=== PATIENT | female | born 1960 | race Caucasian/White ===

== ENCOUNTER → 2016-08-10 | Outpatient (REF) | payer OTHER | LOC: M LAB REF 11:51 | PROVIDERS: ATTEND Internal Medicine | DX: Z51.81 Encounter for therapeutic drug level monitoring (principal); Z79.899 Other long term (current) drug therapy; G43.909 Migraine, unspecified, not intractable, without status migrainosus ==

== ENCOUNTER → 2017-02-07 | Outpatient (REF) | payer OTHER | LOC: M LAB REF 12:35 | PROVIDERS: ATTEND Internal Medicine | DX: G43.909 Migraine, unspecified, not intractable, without status migrainosus (principal); Z51.81 Encounter for therapeutic drug level monitoring; Z79.899 Other long term (current) drug therapy ==

== ENCOUNTER → 2017-08-11 | Outpatient (REF) | payer OTHER ==
[2017-08-11 14:02] LABS: VALPROIC ACID (DEPAKOTE) 51.1 UG/ML (50.0-100.0)
== END ==
LOC: M LAB REF 13:14
DX: Z79.899 Other long term (current) drug therapy (principal); G43.909 Migraine, unspecified, not intractable, without status migrainosus

== ENCOUNTER → 2018-03-20 | Outpatient (REF) | payer OTHER ==
[2018-03-20 12:57] LABS: VALPROIC ACID (DEPAKOTE) 36.9 UG/ML (50.0-100.0)
== END ==
LOC: M LAB REF 12:27
DX: G43.909 Migraine, unspecified, not intractable, without status migrainosus (principal); Z79.899 Other long term (current) drug therapy

== ENCOUNTER → 2019-01-30 | Outpatient (REF) | payer OTHER | LOC: M LAB REF 12:28 | PROVIDERS: ATTEND Nurse Practitioner Adult Health | DX: G43.909 Migraine, unspecified, not intractable, without status migrainosus (principal); Z79.899 Other long term (current) drug therapy ==

== ENCOUNTER → 2019-08-09 | Outpatient (REF) | payer OTHER | LOC: M LAB REF 12:24 | PROVIDERS: ATTEND Internal Medicine | DX: Z79.899 Other long term (current) drug therapy (principal) ==

== ENCOUNTER → 2020-03-09 | Outpatient (REF) | payer OTHER | LOC: M LAB REF 12:35 | PROVIDERS: ATTEND Internal Medicine | DX: Z79.899 Other long term (current) drug therapy (principal) ==

== ENCOUNTER → 2020-09-14 | Outpatient (REF) | payer OTHER | LOC: M LAB REF 16:21 | PROVIDERS: ATTEND Internal Medicine | DX: Z79.899 Other long term (current) drug therapy (principal); G43.909 Migraine, unspecified, not intractable, without status migrainosus ==

== ENCOUNTER 2020-11-30 10:12 | Observation (INO) | payer OTHER ==
[~2020-11-30] VITALS: Ht 157.5 cm; Wt 77.3 kg
[2020-11-30] MEDS ORDERED: DIVA500T9 PO (10:31)
[2020-11-30] MEDS ORDERED: PRAV40TA2 PO (10:31)
[2020-11-30] MEDS ORDERED: ASPI81TA26 PO (10:31)
[2020-11-30] MEDS ORDERED: LOSA50TA88 PO (10:31)
[2020-11-30] MEDS ORDERED: FOLI400T13 PO (10:31)
[2020-11-30] MEDS ORDERED: B-122500 PO (10:31)
[2020-11-30] MEDS ORDERED: NS 1,000 ML IV ONE (11:00)
[2020-11-30 11:07] LABS: BASO % 0.5 % (0.0-1.0); EOS # 0.2 10^3/uL (0.0-0.5); EOS % 2.8 % (0.0-3.0); HEMATOCRIT 40.3 % (36.0-47.0); HEMOGLOBIN 13.5 g/dl (12.0-15.5); LYMPH # 1.3 10^3/uL (1.5-5.0); LYMPH % 22.1 % (24.0-44.0); MEAN CORPUSCULAR HEMOGLOBIN 31.2 pg (27.0-33.0); MEAN CORPUSCULAR HGB CONC 33.5 g/dl (32.0-36.5); MEAN CORPUSCULAR VOLUME 93.1 fl (80.0-96.0); MONO # 0.4 10^3/uL (0.0-0.8); NEUTROPHILS # 3.9 10^3/uL (1.5-8.5); NEUTROPHILS % 67.3 % (36.0-66.0); PLATELET COUNT, AUTOMATED 297 10^3/uL (150-450); RED BLOOD COUNT 4.33 10^6/uL (4.00-5.40); WHITE BLOOD COUNT 5.8 10^3/uL (4.0-10.0)
--- NOTE | 2020-11-30 11:13 | REP ---
INDICATION: Syncope/near-syncope COMPARISON: None. TECHNIQUE: Portable AP view of the chest FINDINGS: The mediastinum and cardiac silhouette are within normal limits for portable technique. The lung gonzalez are clear without acute consolidation, effusion, or pneumothorax. Skeletal structures are intact. IMPRESSION: No acute cardiopulmonary process appreciated. <Electronically signed by Boy Swift > 11/30/20 1105
[2020-11-30 11:42] LABS: BLOOD UREA NITROGEN 16 MG/DL (7-18); CALCIUM LEVEL 9.3 MG/DL (8.8-10.2); CARBON DIOXIDE LEVEL 26 MEQ/L (21-32); CHLORIDE LEVEL 109 MEQ/L (98-107); CK-MB VALUE MASS < 1.0 NG/ML (<3.6); CPK CREATINE PHOSPHOKINASE 72 U/L (26-192); CREATININE FOR GFR 0.79 MG/DL (0.55-1.30); ETHYL ALCOHOL (ETHANOL) < 0.003 % (0.000-0.010); FREE T4 1.05 NG/DL (0.76-1.46); GLOMERULAR FILTRATION RATE > 60.0 (>45); GLUCOSE, FASTING 94 MG/DL (70-100); MB/CK RELATIVE INDEX 1.39 (< OR =4); POTASSIUM SERUM 4.1 MEQ/L (3.5-5.1); SODIUM LEVEL 141 MEQ/L (136-145); TROPONIN I < 0.02 NG/ML (< 0.10)
[2020-11-30 12:07] LABS: AMPHETAMINES LEVEL URINE NEGATIVE (NEGATIVE); BARBITURATES URINE NEGATIVE (NEGATIVE); BENZODIAZEPINES URINE NEGATIVE (NEGATIVE); CANNABINOIDS URINE NEGATIVE (NEGATIVE); COCAINE METABOLITE URINE NEGATIVE (NEGATIVE); METHADONE URINE NEGATIVE (NEGATIVE); OPIATES URINE NEGATIVE (NEGATIVE); PHENCYCLIDINE URINE NEGATIVE (NEGATIVE)
[2020-11-30] MEDS ORDERED: ISOVUE-370 76% 100ML VIAL As Ordered ONE (12:44)
[2020-11-30 13:01] LABS: ALBUMIN 3.7 GM/DL (3.2-5.2); ALT/SGPT 22 U/L (12-78); BILIRUBIN,DIRECT < 0.1 MG/DL (0.0-0.2); BILIRUBIN,TOTAL 0.4 MG/DL (0.2-1.0); LIPASE 66 U/L (73-393); TOTAL PROTEIN 6.9 GM/DL (6.4-8.2); VALPROIC ACID (DEPAKOTE) 53.4 UG/ML (50.0-100.0)
--- NOTE | 2020-11-30 13:18 | REPVR ---
PROCEDURE INFORMATION: Exam: CT Head Without Contrast Exam date and time: 11/30/2020 12:58 PM Age: 60 years old Clinical indication: Pain; Syncope and collapse; Headache; Additional info: Headache syncope TECHNIQUE: Imaging protocol: Computed tomography of the head without contrast. Radiation optimization: All CT scans at this facility use at least one of these dose optimization techniques: automated exposure control; mA and/or kV adjustment per patient size (includes targeted exams where dose is matched to clinical indication); or iterative reconstruction. COMPARISON: No relevant prior studies available. FINDINGS: Brain: There is no acute intracranial hemorrhage, cerebral edema, or midline shift. Mild cerebral and cerebellar volume loss is present. Cerebral ventricles: No hydrocephalus. Paranasal sinuses: There is no acute sinusitis. Mastoid air cells: Visualized mastoid air cells are well aerated. Orbital cavity: Unremarkable as visualized. Bones/joints: No acute fracture. Soft tissues: Unremarkable. IMPRESSION: No acute intracranial abnormality. Electronically signed by: Abdias Feng On 11/30/2020 13:18:00 PM
--- NOTE | 2020-11-30 13:23 | REP ---
INDICATION: RUQ pain syncope COMPARISON: 02/25/2014. TECHNIQUE: CT Scan of the abdomen and pelvis was performed with intravenous administration of 100 cc of Isovue 370, without oral contrast. Sagittal and coronal reconstruction images are performed. FINDINGS: Lung bases: There is no acute infiltrate. There is a small hiatal hernia. Liver: Normal Gallbladder: Unremarkable. Spleen: Normal. Adrenals: Normal. Pancreas: Normal. Kidneys: 3 cortical hypodensities in the mid left kidney likely represent small cysts, the largest 11 mm. Small and large bowel: There is sigmoid diverticulosis without acute diverticulitis.. Free fluid: None. Abdominal aorta: No aneurysm or dissection. Adenopathy: None. Appendix: Not inflamed. Osseous structures: Unremarkable. Pelvis: No mass. IMPRESSION: No acute abnormalities as discussed above. <Electronically signed by Nils Cai > 11/30/20 [id number]
[2020-11-30] MEDS ORDERED: CYAN100050 PO (14:41)
[2020-11-30 14:45] LABS: RSV AMPLIFICATION NEGATIVE (NEGATIVE)
[2020-11-30] MEDS ORDERED: MOM 30ML SUSPENSION UDC PO PRN (14:45)
[2020-11-30] MEDS ORDERED: MAALOX 30 ML SUSP *UDC PO PRN (14:45)
[2020-11-30] MEDS ORDERED: ACETAMINOPHEN TAB 650MG DOSE (2X325MG) PO PRN (14:45)
--- NOTE | 2020-11-30 15:24 | HPEPDOC ---
[facility] Medical History & Physical Date of Admission Nov 30, 2020 Date of Service: Nov 30, 2020 Primary Care Physician: Jr Manuel Collins Attending Physician: TIMOTHY CHISHOLM DO History and Physical CHIEF COMPLAINT: Syncopal episode HISTORY OF PRESENT ILLNESS: The patient is a 60-year-old female who was putting up a small decorative fence near her house this afternoon when she felt a few pangs of abdominal pain, then subsequently felt lightheaded, and then passed out. This was witnessed by her , apparently she was only unconscious for a few seconds. She knew where she was, she did not have any sort of postictal period. She felt somewhat lightheaded thereafter, but this also passed within a few minutes, and then she kept on working. Approximately 30 minutes later she was bending over to look into a well, once again felt lightheaded, notified her , and they decided to seek further evaluation. She did not lose consciousness during this episode, but was presyncopal. Evaluation in the emergency department was largely unremarkable other than the fact that she seems to have labile blood pressures. She has readings anywhere from the 130s systolic up to 180s. Orthostatic vital signs in the ED were negative, but again her blood pressure readings seem to be all over the place. EKG shows sinus rhythm with no abnormalities. CT of the head without contrast, CT of the abdomen and pelvis with IV contrast (given her history of abdominal pains preceding syncopal event), and chest x-ray were all unremarkable. CBC, CMP, cardiac enzymes, lipase, thyroid studies were all within acceptable limits. CODE STATUS: Full code PAST MEDICAL HISTORY: Migraine Hypertension Hyperlipidemia PAST SURGICAL HISTORY: None SOCIAL HISTORY: Does not smoke. Only drinks alcohol on rare occasion, and not much when she does. Denies illicit drug use. FAMILY HISTORY: Mother has an extensive cardiac history having had multiple stents. Father has diabetes mellitus type 2 and had open-heart surgery for valve replacement secondary to congenital bicuspid aortic valve. Maternal uncle and 2 open heart surgeries with bypass. No family history of cancer. REVIEW OF SYSTEMS: Constitutional: Patient denies fevers, chills, night sweats, recent weight gai n/loss. HEENT: Patient denies blurred or double vision, transient visual disturbances, postnasal drip, epistaxis, sore throat, difficulty chewing or swallowing food. Cardiovascular: Patient denies chest discomfort/pain, palpitations, exertional dyspnea, orthopnea, edema of the extremities, claudication. Respiratory: Patient denies dyspnea, wheezing, cough, hemoptysis, sputum production. Gastrointestinal: Patient denies nausea, vomiting, diarrhea, constipation, abdominal pain, melena, hematochezia, hematemesis, jaundice. At this time, while in the ED, she is actually feeling quite well. PHYSICAL EXAMINATION: General: Awake, alert, oriented 3. She is in no acute distress. HEENT: Head normocephalic atraumatic, conjunctiva are pink, sclera are nonicteric, buccal mucosa is pink and moist with no lesions in the oropharynx. Hearing is grossly intact to conversation. Respiratory: Clear to auscultation bilaterally with no wheezes, rales, or rhonchi. Cardiovascular: Regular rate and rhythm, with no rubs, gallops, or murmur. Abdomen: Soft, nontender, nondistended, no hepatosplenomegaly appreciated. Bowel sounds present. Extremities: 2+ pulses in the radial and dorsalis pedis bilaterally. No evidence of clubbing or cyanosis. ELECTROCARDIOGRAM: Sinus rhythm, intervals are within normal limits, no acute abnormalities IMAGING: Unremarkable as listed above ASSESSMENT: Syncope, suspected etiologies could be: - Neurocardiogenic (vasovagal), given that the syncopal event was preceded by exertion and abdominal pain which may have caused her to perform a Valsalva maneuver as well. This also could be secondary to carotid sinus hyperse nsitivity which would fall under the category of neurocardiogenic. Orthostatic hypertension is less likely given that her orthostatics were negative in the ED, her blood pressure is actually elevated, and it was not a particularly hot day, nor was she sweating much, and she has no indication of dehydration on labs. - Migraine, possibly abdominal migraine. 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 This sounds similar to her episode today. After years of investigation apparently it was determined that these episodes were caused by migraine, she was seen and evaluated by neurology and started on B12, folate, Depakote. Depakote levels upon arrival were within target limits, but this is still a possibility. Hypertensive urgency -Pressures are labile in the ED, but seem to be trending down on their own, no specific antihypertensive therapy will be given at this time, but we'll continue to monitor her blood pressure through the night. DVT prophylaxis -Lovenox PLAN: Admit on observation status to [facility] with telemetry. Ultrasound of the carotids and echocardiogram is ordered. Will repeat orthostatic vital signs again. Will continue her home medications, including her home antihypertensive of losartan, and migraine medication Depakote (which she took both this morning). Laboratory evaluation performed in the ED was already quite comprehensive. Otherwise, will keep on telemetry for 24 hours, and if she does not have any episodes overnight, her blood pressure normalizes on its own, and there are no positive findings on ultrasound/echocardiogram, then consideration may be made to have her pursue further follow-up with her PCP and neurologist as an outpatient. Vital Signs Vital Signs Date Time Temp Pulse Resp B/P (MAP) Pulse Ox O2 Delivery O2 Flow Rate FiO2 11/30/20 13:18 73 153/80 (104) 71 169/74 (105) 71 168/83 (111) 11/30/20 13:15 100 Room Air 11/30/20 10:13 98.2 18 Laboratory Data Labs 24H Laboratory Tests 2 11/30/20 10:50: Immature Granulocyte % (Auto) 0.3, Neutrophils (%) (Auto) 67.3H, Lymphocytes (%) (Auto) 22.1L, Monocytes (%) (Auto) 7.0, Eosinophils (%) (Auto) 2.8, Basophils (%) (Auto) 0.5, Neutrophils # (Auto) 3.9, Lymphocytes # (Auto) 1.3L, Monocytes # (Auto) 0.4, Eosinophils # (Auto) 0.2, Basophils # (Auto) 0.0, Nucleated Red Blood Cells % (auto) 0.0, Anion Gap 6L, Glomerular Filtration Rate > 60.0, Calcium Level 9.3, Magnesium Level 2.0, Total Bilirubin 0.4, Direct Bilirubin < 0.1, Aspartate Amino Transf (AST/SGOT) 10, Alanine Aminotransferase (ALT/SGPT) 22, Alkaline Phosphatase 56, Total Creatine Kinase 72, Creatine Kinase MB < 1.0, Creatine Kinase MB Relative Index 1.39, Troponin I < 0.02, Total Protein 6.9, Albumin 3.7, Albumin/Globulin Ratio 1.2, Lipase 66L, Thyroid Stimulating Hormone (TSH) 1.270, Free Thyroxine 1.05, Valproic Acid (Depakene) Level 53.4, Ethyl Alcohol Level < 0.003 11/30/20 11:32: Urine Opiates Screen NEGATIVE, Urine Methadone Screen NEGATIVE, Urine Barbiturates Screen NEGATIVE, Urine Phencyclidine Screen NEGATIVE, Urine Amphetamines Screen NEGATIVE, Urine Benzodiazepines Screen NEGATIVE, Urine Coca ine Metabolite Screen NEGATIVE, Urine Cannabinoids Screen NEGATIVE 11/30/20 13:30: Coronavirus (COVID-19)(PCR) NEGATIVE, Influenza Type A (RT-PCR) NEGATIVE, Influenza Type B (RT-PCR) NEGATIVE, Respiratory Syncytial Virus (PCR) NEGATIVE CBC/BMP Laboratory Tests 11/30/20 10:50 Home Medications Scheduled Aspirin (Aspirin EC) 81 Mg Tablet.dr, 81 MG PO DAILY Cyanocobalamin (Vitamin B-12) (Vitamin B-12) 1,000 Mcg Tablet, 1,000 MCG PO DAILY Divalproex Sodium (Divalproex Sodium ER) 500 Mg Tab.er.24h, 500 MG PO DAILY Folic Acid (Folic Acid) 0.4 Mg Tablet, 0.8 MG PO DAILY Losartan Potassium (Losartan Potassium) 50 Mg Tablet, 50 MG PO DAILY Pravastatin Sodium (Pravastatin Sodium) 40 Mg Tablet, 40 MG PO DAILY Allergies Coded Allergies: SEAFOOD (Verified Allergy, Severe, throat swelling, 11/30/20) bee venom protein (honey bee) (Verified Allergy, Severe, throat swelling , 11/30/20) A-FIB/CHADSVASC A-FIB History Current/History of A-Fib/PAF?: No TIMOTHY CHISHOLM DO Nov 30, 2020 15:24
--- NOTE | 2020-11-30 17:03 | ECGEPIP ---
[facility] - ED Test Date: 2020-11-30 Pat Name: FANTASMA DE LA TORRE Department: Room: - Gender: Female Scrap Sorter: HC : 1960 Requested By: ALEJANDRO Rinaldi Order Number: [id number] Reading MD: Simin Rolon Measurements Intervals [place] Rate: 60 P: 41 [place]: 176 QRS: 6 QRSD: 90 T: 10 QT: 430 QTc: 430 Interpretive Statements Normal sinus rhythm NSTTW abnormalities No prior Electronically Signed on 11-30-2020 17:03:13 EDT by Simin Rolon
--- NOTE | 2020-11-30 18:33 | REP ---
INDICATION: Assess stenosis TECHNIQUE: Carotid ultrasonography was performed bilaterally FINDINGS: Right: CCA systolic 101 centimeters/second: CCA diastolic: 25.5 centimeters/second ICA systolic: 111 centimeters/second ICA diastolic: 43.1 centimeters/second ICA CCA ratio: 1.09 Left: CCA systolic: 116 centimeters/second CCA diastolic: 30.6 centimeters/second ICA systolic 119 centimeters/second: Reversed ICA diastolic: 46.5 centimeters/second reversed ICA CCA ratio: 1.02 Vertebral artery: Right: Antegrade flow left: Retrograde flow Echogenic material seen along the carotid arterial wu consistent with atheromatous plaque formation. IMPRESSION: According to the SRU criteria there is less than 50% stenosis of the internal carotid artery bilaterally. There is, however, evidence of a significant left-sided subclavian steal syndrome. This will need further investigation with either CTA or MRA. <Electronically signed by Rosalino Amador > 11/30/20 [id number]
[2020-11-30 20:00] VITALS: BP 148/69
[2020-11-30] MEDS ORDERED: SLF 3 ML SYR IV PRN (21:00)
[2020-11-30] MEDS: SLF 3 ML SYR IV SCH (22:06)
[2020-12-01 04:00] VITALS: BP 140/70
[2020-12-01 05:36] LABS: HEMATOCRIT 38.2 % (36.0-47.0); HEMOGLOBIN 12.8 g/dl (12.0-15.5); MEAN CORPUSCULAR HEMOGLOBIN 30.5 pg (27.0-33.0); MEAN CORPUSCULAR HGB CONC 33.5 g/dl (32.0-36.5); MEAN CORPUSCULAR VOLUME 91.2 fl (80.0-96.0); PLATELET COUNT, AUTOMATED 276 10^3/uL (150-450); RED BLOOD COUNT 4.19 10^6/uL (4.00-5.40); WHITE BLOOD COUNT 5.9 10^3/uL (4.0-10.0)
[2020-12-01] MEDS: SLF 3 ML SYR IV SCH (05:42)
[2020-12-01 05:57] LABS: BLOOD UREA NITROGEN 14 MG/DL (7-18); GLUCOSE, FASTING 89 MG/DL (70-100)
[2020-12-01 05:58] LABS: CALCIUM LEVEL 8.7 MG/DL (8.8-10.2); CARBON DIOXIDE LEVEL 26 MEQ/L (21-32); CHLORIDE LEVEL 108 MEQ/L (98-107); GLOMERULAR FILTRATION RATE > 60.0 (>45); POTASSIUM SERUM 3.8 MEQ/L (3.5-5.1); SODIUM LEVEL 140 MEQ/L (136-145)
[2020-12-01 08:00] VITALS: BP 166/85
[2020-12-01] MEDS ORDERED: ISOVUE-370 76% 100ML VIAL As Ordered ONE (08:10)
--- NOTE | 2020-12-01 08:44 | REP ---
INDICATION: Evaluate for significant left subclavian steal seen on US COMPARISON: None. TECHNIQUE: Axial contrast enhanced images from the thoracic inlet to the upper abdomen using angiographic technique with multiplanar re-formations. 75 ml Isovue 370 intravenous contrast material administered without complication. This CT examination was performed using the following dose reduction techniques: Automated exposure control, adjustment of mA and/or kv according to the patient's size, and use of iterative reconstruction technique. FINDINGS: Satisfactory enhancement of the aorta and branch vessels through the aortic arch including proximal carotid, vertebral, subclavian and axillary arteries is noted. There is no evidence for subclavian artery occlusion, but sagittal MIP reformations suggest focal narrowing at the origin of the left subclavian artery (series 406; image 40). Remainder of the visualized arterial structures appear normal. Bilateral lung gonzalez are clear and without consolidation, effusion, or pneumothorax. Tracheobronchial tree is patent. No obvious adenopathy. Atherosclerotic changes to the coronary arteries along with mild atherosclerotic changes to the thoracic aorta cannot be excluded. Surrounding musculoskeletal structures are intact. IMPRESSION: 1. Narrowing at the origin of the left subclavian artery cannot definitively be excluded and is best suggested on sagittal MIP reformations as noted above. However, otherwise normal enhancement and appearance of the left subclavian artery as well as the remainder of the visualized arterial structures is noted. <Electronically signed by Boy Swift > 12/01/20 [id number]
[2020-12-01] MEDS ORDERED: LOSARTAN 50MG TABLET PO SCH (09:00)
[2020-12-01] MEDS ORDERED: ASPIRIN 81MG ENTERIC TABLET PO SCH (09:00)
[2020-12-01] MEDS ORDERED: DIVALPROEX 500MG *ER* TAB PO SCH (09:00)
[2020-12-01] MEDS ORDERED: PRAVASTATIN 20 MG TAB PO SCH (09:00)
[2020-12-01] MEDS ORDERED: ENOXAPARIN 40MG/0.4ML SYRINGE (J1650 PER 10MG) SC SCH (09:00)
[2020-12-01 09:21] VITALS: BP 166/85
--- NOTE | 2020-12-01 11:38 | IPNPDOC ---
Text Note Date of Service The patient was seen on 12/01/20. NOTE Subjective: Patient was seen and examined this morning at bedside. She tells me she's had no more presyncopal or syncopal episodes. She's been feeling well she's been walking around her room on her own. She has a mild headache but otherwise feels well. Denies any chest pain or shortness of breath. Denies left arm numbness or pain. Tells me she is not an active smoker and has never smoked before. Objective: Constitutional: Awake and alert, in no apparent distress ENT: Sclera are clear. Mucosa is moist. Respiratory: Lungs CTA bilaterally. No respiratory distress. Cardiovascular: RRR S1 and S2 are normal, no murmur Gastrointestinal: Abdomen is soft, non distended, non tender, BS present. Musculoskeletal: No edema. No joint deformities. Neurologic: No focal neurological deficit. Mental Status: A&O x3, normal affect Skin: Warm, dry Assessment/plan: # Sycope: Possibly vasovagal while working in the garden vs possibly related to her migraine. No events on telemetry monitoring. Patient was noted to have significant left-sided subclavian steal on ultrasound and CT was recommended. CTA was obtained which suggests focal narrowing at the origin of the left subclavian artery. Unfortunately to have vesicles surgery document control clerk today to consult with but I was able to obtain a consultation with [facility] vascular surgeon Dr. Tiwari, he agreed it was a representation especially having subclavian steal in a patient who has no smoking history and agreed to see her in the clinic ([id number]) he doesn't feel is necessary to transfer the patient for inpatient evaluation given that she is doing better with no more syncopal episodes. Patient will be discharged home today and asked to follow-up with vascular surgery and her PCP at discharge. # Hypertensive urgency: Patient's blood pressure is labile appears to be better controlled this morning. She thinks it's related to her headache which is better than it was. Continue home medications and follow-up with PCP. # DVT prophylaxis: Lovenox A [facility]ouse[facility] Hospitalist VS,Dolly, I+O VS, [place]ren[place], I+O Laboratory Tests 12/01/20 05:16 Vital Signs Date Time Temp Pulse Resp B/P (MAP) Pulse Ox O2 Delivery O2 Flow Rate FiO2 12/01/20 09:21 166/85 12/01/20 08:00 98.9 84 18 96 Room Air I&O- Last 24 Hours up to 6 AM 12/01/20 06:00 Intake Total 1650 ml Output Total 600 ml Balance 1050 ml LANA INGRAM MD Dec 01, 2020 11:38
[2020-12-02] MEDS ORDERED: META28.32 PO (13:03)
== END 2020-12-01 14:17 | disposition home or self-care (01) ==
LOC: M ED 10:12 → M ED INP 10:13 → ENRESERV 15:32 → M PCU 16:34
PROVIDERS: ADMIT Neuromusculoskeletal Medicine & OMM; ATTEND Family Medicine
DX: R55 Syncope and collapse (principal); I16.0 Hypertensive urgency; G45.8 Other transient cerebral ischemic attacks and related syndromes; R10.9 Unspecified abdominal pain; G43.909 Migraine, unspecified, not intractable, without status migrainosus; E78.5 Hyperlipidemia, unspecified; Z79.899 Other long term (current) drug therapy; Z79.82 Long term (current) use of aspirin; Z91.013 Allergy to seafood; Z91.030 Bee allergy status
CPT/HCPCS: 36415; 70450; 71045; 71275; 74177; 80048; 80076; 80164; 80307; 82077; 82550; 82553; 83690; 83735; 84439; 84443; 84484; 85025; 85027; 87631; 87641; 93005; 93041; 93880; 94760; 96360; 96361; 96372; 99285; J1650; Q9967

== ENCOUNTER → 2021-03-22 | Outpatient (REF) | payer OTHER ==
[~2021-03-22] MED LIST: ASPI81TA26 PO; B-122500 PO; CYAN100050 PO; DIVA500T9 PO; FOLI400T13 PO; LOSA50TA88 PO; META28.32 PO; PRAV40TA2 PO
[2021-03-22 13:06] LABS: C REACTIVE PROTEIN QUANTITATIV < 0.30 MG/DL (0.00-0.30); VALPROIC ACID (DEPAKOTE) 39.9 UG/ML (50.0-100.0)
== END ==
LOC: M LAB REF 11:40
PROVIDERS: ATTEND Internal Medicine
DX: R55 Syncope and collapse (principal); Z79.899 Other long term (current) drug therapy; G43.909 Migraine, unspecified, not intractable, without status migrainosus

== ENCOUNTER → 2021-09-21 | Outpatient (REF) | payer OTHER ==
[~2021-09-21] MED LIST changes: +LOSA50TA28 PO; -LOSA50TA88 PO
== END ==
LOC: M LAB REF 11:16
PROVIDERS: ATTEND Internal Medicine
DX: G43.909 Migraine, unspecified, not intractable, without status migrainosus (principal); Z79.899 Other long term (current) drug therapy

== ENCOUNTER → 2021-11-04 | Outpatient (CLI) | payer OTHER | LOC: M WHC 07:54 | PROVIDERS: ATTEND Internal Medicine | DX: Z12.31 Encounter for screening mammogram for malignant neoplasm of breast (principal); Z78.0 Asymptomatic menopausal state; Z80.9 Family history of malignant neoplasm, unspecified ==

== ENCOUNTER → 2022-06-06 | Outpatient (REF) | payer OTHER | LOC: M LAB REF 16:05 | PROVIDERS: ATTEND Internal Medicine | DX: Z79.899 Other long term (current) drug therapy (principal); G43.909 Migraine, unspecified, not intractable, without status migrainosus ==

== ENCOUNTER → 2022-12-27 | Outpatient (REF) | payer OTHER ==
[~2022-12-27] MED LIST changes: +CYAN-1 PO; -CYAN100050 PO
== END ==
LOC: M LAB REF 12:17
PROVIDERS: ATTEND Internal Medicine
DX: G43.909 Migraine, unspecified, not intractable, without status migrainosus (principal)

== ENCOUNTER → 2023-01-04 | Outpatient (CLI) | payer OTHER | LOC: M WHC 13:19 | PROVIDERS: ATTEND Internal Medicine | DX: Z12.31 Encounter for screening mammogram for malignant neoplasm of breast (principal); M85.80 Other specified disorders of bone density and structure, unspecified site ==

== ENCOUNTER → 2023-07-05 | Outpatient (REF) | payer OTHER | LOC: M LAB REF 12:27 | PROVIDERS: ATTEND Internal Medicine | DX: G43.909 Migraine, unspecified, not intractable, without status migrainosus (principal) ==

== ENCOUNTER → 2024-01-09 | Outpatient (REF) | payer OTHER | LOC: M LAB REF 12:56 | PROVIDERS: ATTEND Internal Medicine | DX: G43.909 Migraine, unspecified, not intractable, without status migrainosus (principal); Z79.899 Other long term (current) drug therapy ==

== ENCOUNTER → 2024-01-18 | Outpatient (CLI) | payer OTHER | LOC: M WHC 08:32 | PROVIDERS: ATTEND Internal Medicine | DX: Z12.31 Encounter for screening mammogram for malignant neoplasm of breast (principal) ==

== ENCOUNTER → 2024-02-16 | Outpatient (REF) | payer OTHER ==
[2024-02-16 10:08] LABS: RSV AMPLIFICATION NEGATIVE (NEGATIVE)
== END ==
LOC: M LAB REF 09:15
PROVIDERS: ATTEND Nurse Practitioner Family
DX: J06.9 Acute upper respiratory infection, unspecified (principal)

== ENCOUNTER 2024-04-29 10:26 | Day surgery (SDC) | payer OTHER ==
[~2024-04-29] VITALS: Ht 157.5 cm; Wt 74.9 kg
[~2024-04-29 10:26] MED LIST changes: +LOSA25TA13 PO
[2024-04-29] MEDS ORDERED: LIDOCAINE 2% 100MG/5ML SDV (FOR ANES.) As Ordered ONE (11:46)
[2024-04-29] MEDS ORDERED: propofoL 200 MG/20 ML VIAL As Ordered ONE (11:46)
[2024-04-29] MEDS ORDERED: dexmedeTOMIDine (4MCG/ML)200MCG/50ML BTL (PRECEDEX) As Ordered ONE (11:46)
[2024-04-29 12:09] VITALS: TEMP 98.3
[2024-04-29 12:36] VITALS: BP 168/89; O2SAT 94
== END 2024-04-29 12:48 | disposition home or self-care (01) ==
LOC: M OPP 10:26
PROVIDERS: ATTEND Internal Medicine Gastroenterology
DX: Z12.11 Encounter for screening for malignant neoplasm of colon (principal); K64.0 First degree hemorrhoids; K57.30 Diverticulosis of large intestine without perforation or abscess without bleeding; I10 Essential (primary) hypertension; I49.5 Sick sinus syndrome; Z86.12 Personal history of poliomyelitis; G43.909 Migraine, unspecified, not intractable, without status migrainosus; Z91.013 Allergy to seafood; Z88.8 Allergy status to other drugs, medicaments and biological substances; Z91.030 Bee allergy status; Z79.82 Long term (current) use of aspirin; Z79.899 Other long term (current) drug therapy

== ENCOUNTER → 2024-07-12 | Outpatient (REF) | payer OTHER, MEDICARE | LOC: M LAB REF 11:07 | PROVIDERS: ATTEND Internal Medicine | DX: G43.909 Migraine, unspecified, not intractable, without status migrainosus (principal) ==

== ENCOUNTER → 2025-01-10 | Outpatient (REF) | payer MEDICARE ==
[~2025-01-10] MED LIST changes: -PRAV40TA2 PO; +PRAV40TA85 PO
== END ==
LOC: M LAB REF 13:06
PROVIDERS: ATTEND Internal Medicine
DX: G43.909 Migraine, unspecified, not intractable, without status migrainosus (principal); Z79.899 Other long term (current) drug therapy

== ENCOUNTER → 2025-01-27 | Outpatient (CLI) | payer MEDICARE | LOC: M RAD 10:48 | PROVIDERS: ATTEND Internal Medicine | DX: I70.0 Atherosclerosis of aorta (principal); I65.23 Occlusion and stenosis of bilateral carotid arteries ==

== ENCOUNTER → 2025-01-31 | Outpatient (CLI) | payer MEDICARE | LOC: M CARPUL 15:14 | PROVIDERS: ATTEND Internal Medicine | DX: R20.0 Anesthesia of skin (principal); I36.1 Nonrheumatic tricuspid (valve) insufficiency ==

== ENCOUNTER → 2025-03-11 | Outpatient (CLI) | payer MEDICARE | LOC: M WHC 09:08 | PROVIDERS: ATTEND Internal Medicine | DX: Z12.31 Encounter for screening mammogram for malignant neoplasm of breast (principal); R92.313 Mammographic fatty tissue density, bilateral breasts ==

== ENCOUNTER → 2025-04-29 | Outpatient (CLI) | payer MEDICARE ==
[2025-04-29 15:53] LABS: CREATININE FOR GFR 0.85 MG/DL (0.55-1.30); GLOMERULAR FILTRATION RATE 75.5 (>45)
== END ==
LOC: M PLALAB 13:08
PROVIDERS: ATTEND Psychiatry & Neurology Neurology
DX: I10 Essential (primary) hypertension (principal)